=== PATIENT | female | born 1955 | race Two or more races ===

== ENCOUNTER → 2021-10-23 | Outpatient (CLI) | payer MEDICARE | END | disposition home or self-care (01) | LOC: SHCH 13:07 | PROVIDERS: ATTEND Internal Medicine Cardiovascular Disease | DX: I35.8 Other nonrheumatic aortic valve disorders (principal); I11.9 Hypertensive heart disease without heart failure; E11.9 Type 2 diabetes mellitus without complications; R94.31 Abnormal electrocardiogram [ECG] [EKG] | CPT/HCPCS: 93306 ==

== ENCOUNTER → 2022-02-09 | Outpatient (CLI) | payer MEDICARE | LOC: SHCH 12:42 | PROVIDERS: ATTEND Internal Medicine Cardiovascular Disease | DX: R07.9 Chest pain, unspecified (principal); R09.89 Other specified symptoms and signs involving the circulatory and respiratory systems | CPT/HCPCS: 93880 ==

== ENCOUNTER 2025-08-09 05:54 | Day surgery (SDC) | payer MEDICARE ==
[2025-08-06 12:42] VITALS: BP 127/67; PULSE 55; RESP 18; TEMP 97.6
--- NOTE | 2025-08-06 12:42 | EKG ---
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
[2025-08-06 12:50] LABS: IMMATURE GRANULOCYTE ABSOLUTE 0.02 K/uL (0-1); NUCLEATED RED BLOOD CELLS 0.0 % (0.0-0.19); PLATELET COUNT (AUTO) 204 K/uL (130-400); RED BLOOD CELL COUNT(AUTO) 5.14 MIL/uL (4.00-5.50); RED CELL DISTRIBUTION WIDTH 12.2 % (11.0-15.5); WHITE BLOOD COUNT (AUTO) 6.2 K/uL (4.8-10.8)
[2025-08-06 13:00] LABS: CREATININE 0.8 mg/dL (0.5-1.0); GLOMERULAR FILTR. RATE CALC 79.0 mL/min (>90); GLUCOSE,RANDOM 194.0 mg/dL (70-105); SODIUM SERUM 142.0 mmol/L (136-145); UREA NITROGEN, BLOOD 21.0 mg/dL (7-18)
[2025-08-06 13:02] LABS: APPEARANCE,URINE CLEAR (CLEAR); GLUCOSE, URINE (UA) >=1000 mg/dL (NEGATIVE); LEUKOCYTE ESTERASE ,URINE NEGATIVE Leu/uL (NEGATIVE); NITRATE,URINE NEGATIVE (NEGATIVE); OCCULT BLOOD,URINE NEGATIVE (NEGATIVE)
[2025-08-06 13:04] LABS: INR 0.97 (0.85-1.15)
[2025-08-06 13:05] LABS: ADD UA MICROSCOPIC YES
[2025-08-06 13:22] LABS: SQUAMOUS EPITHELIAL CELL,UR RARE /HPF (0-2)
--- NOTE | 2025-08-06 14:03 | HMCIMG ---
CHEST 1VW REASON: PRE OP COMPARISON: None. FINDINGS: Single view of the chest was obtained. Lungs are clear. Heart size is normal. There is no pulmonary vascular congestion. Mediastinum and bony thorax appear unremarkable. IMPRESSION: 1 no acute cardiopulmonary process
[2025-08-09] VITALS (9 sets, daily range): BP systolic 136–160; BP diastolic 66–79; PULSE 57–68; RESP 12–18; TEMP 97.7
[~2025-08-09] VITALS: Ht 162.6 cm; Wt 66.9 kg
[~2025-08-09 05:54] MED LIST: ASPIRIN PO; DAPA10TA PO; METF-444 PO; ROSU5TAB51 PO
[2025-08-09] MEDS ORDERED: LIDOCAINE HCL 400MG/20ML VIAL ONE (07:14)
[2025-08-09] MEDS ORDERED: IOHEXOL 350 MG/ML 100ML INFUS..BTL IV ONE (07:15)
[2025-08-09] MEDS ORDERED: HEParin-NS 1,000 UNIT/500 ML 500 ML IV ONE ×2 (07:15→07:51)
[2025-08-09] MEDS ORDERED: NITROGLYCERIN 50MG VIAL ONE (07:15)
[2025-08-09] MEDS ORDERED: IOHEXOL-350 75 ML VIAL IV ONE (07:17)
[2025-08-09] MEDS ORDERED: MIDAZOLAM HCL 1 MG/ML 2ML VIAL ONE (07:36)
[2025-08-09] MEDS: 0.9%NACL 1000ML 1,000 ML IV SCH (08:18)
[2025-08-09] MEDS ORDERED: GLUCAGON 1MG KIT 1 MG ML IM PRN (09:00)
[2025-08-09] MEDS ORDERED: 0.9%NACL 1000ML 1,000 ML IV SCH (09:00)
[2025-08-09] MEDS ORDERED: DEXTROSE 50%-WATER 50 ML DISP.SYRIN IV PRN (09:00)
--- NOTE | 2025-08-09 09:33 | PRN ---
PROCEDURE NOTE Indications: Chest pain, CCS three symptoms Abnormal coronary CTA done 01/22/2022 Normal left ventricle systolic function (LVEF pertinent 55% by echocardiogram done on 10/23/2021) HLP DM2 Procedures: LHC, coronary angiogram, femoral angiogram Introduction: After informed written consent was obtained, the patient was brought to the Catheterization Lab in the usual fasting state. Following sterile prep and drape, a time out was performed, then moderate sedation was administered, 1mg of Versed and 25mcg of Fentanyl, then 1% Lidocaine was infiltrated into the right femoral groin. Using a Modified Seldinger technique, a 6Fr Sheath was inserted into the right common femoral artery. While under fluoroscopic guidance, diagnostic coronary catheters were advanced over a wire into the central circulation where they were aspirated, flushed and placed to pressure monitoring, once the wire was removed. Coronary Angio: The left and right coronary arteries were engaged with appropriate catheters and angiography was performed under continuous pressure monitoring. Left Heart Catheterization: A JR4 catheter was inserted into the LV and the pressure was recorded, then the catheter was removed from the LV. Cardiac Findings: Right dominant system LM: Large caliber vessel with 30% stenosis in the distal LM. The vessel bifurcates into the LAD and LCX. LAD: Medium caliber vessel with diffuse 70-80% stenosis in the proximal and mid LAD. The rest of the vessel has mild luminal irregularities. Diagonal 1: Small caliber vessel with mild luminal irregularities. Diagonal 2: Small caliber vessel with mild luminal irregularities. LCx: Medium caliber vessel with 70-80% stenosis in the mid LCX and 40% stenosis in the mid to distal LCX. OM1: Small caliber vessel with mild luminal irregularities. OM2: Medium caliber vessel with 70% stenosis in the ostial OM2 RCA: Medium caliber vessel with diffuse 80-90% stenosis in the proximal and mid RCA. RPDA: Small caliber vessel with 70% stenosis in the mid segment of the vessel. RPLV: Small caliber vessel with 90% stenosis of the proximal segment of the vessel LVEDP: 13mmHg Medications given: Versed 1mg, Fentanyl 25mcg, nitroglycerin 200mcg IV x 1 dose Coronary Intervention: None Complications: None Conscious Sedation Monitoring: Under my direct order and supervision, medication for moderate conscious sedation was administered by the nursing staff and the patients level of consciousness and physiological status was monitored by an independent trained nurse. Closure of Access Site: After the case completed the sheath was pulled and a 6Fr Angioseal was deployed in the right common femoral artery without complication. Conclusion: 1. Chest pain, CCS III symptoms 2. 3V + branch vessel CAD (diffuse 70-80% stenosis in the proximal and mid LAD, 70-80% stenosis in the mid LCX, diffuse 80-90% stenosis in the proximal and mid RCA, 70% stenosis in the ostial OM2, 90% stenosis in the proximal RPLV, 70% stenosis in the mid RPDA) 3. Abnormal coronary CTA done 01/22/2022 4. Normal left ventricle systolic function (LVEF pertinent 55% by echocardiogram done on 10/23/2021) 5. HLP 6. DM2 Recommendation: 1. Continue goal-directed medical therapy 2. Groin precautions 3. 4 hours of bedrest 4. Start NS at 100 mL/hour x3 hours. 5. Okay to DC once bed restless complete and the right groin is soft, free of bruising, bleeding, and or hematoma formation. 6. No driving for the next 48 hours. 7. No heavy lifting or strenuous exercise for the next two weeks. 8. We will refer the patient to CT surgery for CABG evaluation as an outpatient. 9. Please have the patient follow up with Dr. Desai in 1-2 weeks. ITA DESAI MD Aug 09, 2025 09:33
--- NOTE | 2025-08-09 10:17 | NUR ---
Dr Desai spoke at length with Patient and Family including Real Estate Consultant. RX called into Pharmacy by Adan VILLALPANDO
--- NOTE | 2025-08-09 11:00 | NUR ---
RX FOR RANOLIZINE ER 500MG BID #[id number] REFILLS X 5 CALLED INTO [facility]. PT AND FAMILY MADE AWARE
--- NOTE | 2025-08-09 12:39 | NUR ---
Full and complete discharge instructions given to Patient and Family both verbally and in writing. Explained Angiogram procedure precautions and follow up. Right groin site clean dry and intact. No evidence of bleeding, bruising or hematoma. Pedal pulses intact to BLE's. All questions answered. PIV removed with catheter tip intact. at bedside appearing supportive. CD provided to Patient of Angiography. W/C to POV with to home. Fully Interpreted by Family member throughout day and with Anthony Pérez. All questions answered.
== END 2025-08-09 13:00 | disposition home or self-care (01) ==
LOC: DAH 05:54
PROVIDERS: ATTEND Internal Medicine Cardiovascular Disease
DX: R94.39 Abnormal result of other cardiovascular function study (principal); I25.118 Atherosclerotic heart disease of native coronary artery with other forms of angina pectoris; I44.0 Atrioventricular block, first degree; E78.5 Hyperlipidemia, unspecified; E11.9 Type 2 diabetes mellitus without complications; I77.9 Disorder of arteries and arterioles, unspecified; R01.1 Cardiac murmur, unspecified; Z79.82 Long term (current) use of aspirin; Z79.84 Long term (current) use of oral hypoglycemic drugs; Z79.01 Long term (current) use of anticoagulants; Z79.899 Other long term (current) drug therapy
CPT/HCPCS: 80048; 83880; 85025; 85610; 85730; 81001; 36415; 71045; 93005; 93458; 82948 ×2; 99156; 99157 ×2; C1894 ×2; C1760; J3010; J3490 ×2; J2250; J1644 ×2; Q9967; A4215; A4222; A4221; A4663; A4216; A4606; Q9965; A4223 ×3; A4554; 96360; 96361